=== PATIENT | male | born 1960 | race American Indian/Alaskan Native ===

== ENCOUNTER 2020-12-03 11:43 | Outpatient (CLI) | payer OTHER ==
--- NOTE | 2020-12-03 13:28 | XRay Report ---
BILATERAL KNEES 4 VIEWS INDICATION / CLINICAL INFORMATION: BILAT knee pain. COMPARISON: None available. FINDINGS: No significant skeletal abnormality Signer Name: Silvano Rooney MD FACR Signed: 12/03/2020 1:24 PM Workstation Name: [email or web address]
--- NOTE | 2020-12-03 13:28 | XRay Report ---
LUMBAR SPINE 3 VIEWS INDICATION / CLINICAL INFORMATION: back pain. COMPARISON: None available. FINDINGS: Mild diffuse degenerative change. No other significant skeletal abnormality. Alignment is normal. Signer Name: Silvano Rooney MD FACR Signed: 12/03/2020 1:24 PM Workstation Name: [email or web address] [id number]
--- NOTE | 2020-12-03 13:29 | XRay Report ---
BILATERAL SHOULDERS 6 VIEWS INDICATION / CLINICAL INFORMATION: shoulder pain bilateral. COMPARISON: None available. 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 No other significant skeletal ab normality Signer Name: Silvano Rooney MD FACR Signed: 12/03/2020 1:25 PM Workstation Name: [email or web address]
== END 2020-12-03 11:44 | disposition home or self-care (01) ==
LOC: XRAY 11:43
PROVIDERS: ATTEND Internal Medicine
DX: M47.814 Spondylosis without myelopathy or radiculopathy, thoracic region (principal); M25.511 Pain in right shoulder; M25.512 Pain in left shoulder; M25.562 Pain in left knee; M25.561 Pain in right knee
CPT/HCPCS: 72100